=== PATIENT | female | born 1990 | race Hispanic/Latino ===

== ENCOUNTER 2021-08-20 09:06 | Outpatient (CLI) | payer OTHER ==
[2021-08-20 22:51] LABS: SARS-CoV-2 PCR by NAA Not Detected (NotDetected)
== END 2021-08-20 09:07 | disposition home or self-care (01) ==
LOC: CSHLAB 09:06
PROVIDERS: ATTEND Obstetrics & Gynecology
DX: Z20.822 Contact with and (suspected) exposure to COVID-19 (principal)
CPT/HCPCS: U0003; U0005

== ENCOUNTER 2021-08-25 05:30 | Inpatient (IN) | payer OTHER ==
[2021-08-25] MEDS ORDERED: Ibuprofen 800 MG TAB PO PRN ×2 (06:04→19:08)
[2021-08-25] MEDS ORDERED: Ondansetron PF 4 MG/2 ML Vial IVP PRN ×2 (06:04→19:00)
[2021-08-25] MEDS ORDERED: NS w/ Oxytocin 30 units 500 ML IV SCH ×3 (06:04→22:00)
[2021-08-25] MEDS ORDERED: hydrALAZINE 20 MG/ML VIAL SLOW IVP PRN ×2 (06:04→19:00)
[2021-08-25] MEDS ORDERED: Promethazine HCl 25 MG/ML VIAL IM PRN (06:04)
[2021-08-25] MEDS ORDERED: HYDROcodone/Acetaminophen 5/325 mg Tablet PO PRN ×6 (06:04→19:08)
[2021-08-25] MEDS ORDERED: Lidocaine 1% (PF) 30 ML VIAL SC PRN (06:04)
[2021-08-25 06:35] VITALS: BMI 31.5
[2021-08-25] MEDS: Lactated Ringer's 1,000 ML IV SCH ×2 (06:54→14:09)
[2021-08-25 07:05] LABS: Hemoglobin 11.3 g/dL (12.0-15.5); Mean Corpuscular Hemoglobin 25.7 pg (27.0-33.0); Mean Corpuscular Volume 77.9 fl (81.6-98.3); Platelet Count 244 10x3/uL (150-450); RBC Distribution Width 14.9 % (11.5-14.5); Red Blood Cell (RBC) Count 4.39 10x6/uL (3.90-5.03); White Blood Cell (WBC) Count 7.7 10x3/uL (3.5-10.5)
[2021-08-25 07:37] LABS: HBSAg Index 0.19 S/CO (0-0.99); Hep B Surf Ag Non-Reactive S/CO (NonReactive)
[2021-08-25 07:38] LABS: Syphilis Antibody Nonreactive (Nonreactive); Syphilis Antibody Index 0.09 S/CO (<1.00 Non-Reactive)
[2021-08-25] MEDS: Butorphanol Tartrate 1 MG/ML VIAL SLOW IVP PRN ×3 (10:44→13:43)
[2021-08-25] MEDS ORDERED: Lanolin Ointment 7 GM TUBE TOP PRN (19:00)
[2021-08-25] MEDS ORDERED: Boostrix 0.5 ML (Tdap) VIAL IM ONE (19:00)
[2021-08-25] MEDS ORDERED: diphenhydrAMINE 25 MG CAP PO PRN (19:00)
[2021-08-25] MEDS ORDERED: Bisacodyl 10 MG SUPP PR PRN (19:00)
[2021-08-25] MEDS ORDERED: Preparation H Ointment 28 GM TUBE PR PRN (19:00)
[2021-08-25] MEDS ORDERED: Benzocaine-Menthol 82.5 ML CAN TOP PRN (19:00)
[2021-08-25] MEDS ORDERED: Milk Of Magnesia 30 ML UDCUP PO PRN (19:00)
[2021-08-25] MEDS ORDERED: Ferrous Sulfate 325 MG TAB PO SCH (22:00)
[2021-08-25] MEDS ORDERED: Docusate 100 MG CAP PO SCH (22:00)
[2021-08-26] MEDS: Ibuprofen 800 MG TAB PO SCH ×3 (04:06→13:56)
[2021-08-26 08:01] VITALS: TEMP 98.1
[2021-08-26] MEDS: Ferrous Sulfate 325 MG TAB PO SCH ×2 (08:40→18:05)
[2021-08-26] MEDS ORDERED: Prenatal Vitamin 1 TAB PO SCH (09:00)
[2021-08-26] MEDS ORDERED: Docusate 100 MG CAP PO SCH (09:00)
[2021-08-26 11:25] VITALS: BP 132/61
== END 2021-08-26 18:46 | disposition home or self-care (01) | DRG 807 ==
LOC: CSHLD 06:02 → CSHPP 19:39
PROVIDERS: ADMIT Obstetrics & Gynecology; ATTEND Obstetrics & Gynecology
PROC: 10E0XZZ Delivery of Products of Conception, External Approach (ICD-10-PCS; principal; 2021-08-25)
DX: O69.81X0 Labor and delivery complicated by cord around neck, without compression, not applicable or unspecified (principal); Z37.0 Single live birth; Z3A.40 40 weeks gestation of pregnancy
CPT/HCPCS: 36415; 85027; 86780; 86850; 86900; 86901; 87340; J0360; J0595; J2405; J2590; J7120